=== PATIENT | female | born 1995 | race Caucasian/White ===

== ENCOUNTER 2019-02-25 23:09 | Emergency (ER) | payer OTHER ==
--- NOTE | 2019-02-26 01:50 | ED ---
- HPI Summary HPI Summary: The patient is a 23 y/o F presenting to [facility] with a chief complaint of sudden onset sharp right-sided pelvic pain starting at 1900 last night. The pain is rated 7/10 in severity. She is currently 19 weeks (). She is concerned because she did not have this pain during her first . She denies vaginal bleeding or discharge, contractions, nausea, vomiting, and diarrhea. Her OBGYN is Dr. Hay. - History of Current Complaint Chief Complaint: EDOBProblems Stated Complaint: "19 WKS PREG ABD PAIN" PER PT Time Seen by Provider: 02/26/19 01:43 Hx Obtained From: Patient Chief Complaint: Pain Onset/Duration: Started Hours Ago - at 1900, Still Present Timing: Lasting Hours Severity: Moderate Current Severity: Moderate Pain Intensity: 7 Location of Pain: Right Side - pelvic Character: Sharp Aggravating Factors: Nothing Alleviating Factors: Nothing Associated Signs and Symptoms: Positive: Other: - NEGATIVE: nausea, diarrhea, contractions. Negative: Nausea, Vaginal Bleeding or Discharge - Allergies/Home Medications Allergies/Adverse Reactions: Allergies Allergy/AdvReac Type Severity Reaction Status Date / Time cefaclor [From [facility]] Allergy Unknown Verified 02/25/19 23:20 Reaction Details Home Medications: Home Medications Cholecalciferol TAB* [Vitamin D TAB*] 1 tab PO DAILY 02/25/19 [History Confirmed 02/25/19] Vitamin TAB* 1 tab PO DAILY 02/25/19 [History Confirmed 02/25/19] PMH/Surg Hx/FS Hx/Imm Hx Endocrine/Hematology History: Denies: Hx Diabetes Opthamlomology History: Denies: Hx Legally Blind EENT History: Denies: Hx Deafness - Surgical History Surgery Procedure, Year, and Place: none Infectious Disease History: No Infectious Disease History: Denies: Traveled Outside the [place] in Last 30 Days - Family History Known Family History: Negative: Cardiac Disease - Social History Alcohol Use: None Hx Substance Use: No Substance Use Type: Reports: None Hx Tobacco Use: No Smoking Status (MU): Never Smoked Tobacco Review of Systems Positive: Abdominal Pain - sharp right-sided pelvic pain. Negative: Vomiting, Diarrhea, Nausea Positive: other - NEGATIVE: vaginal bleeding, contractions, vaginal discharge All Other Systems Reviewed And Are Negative: Yes Physical Exam - Summary Physical Exam Summary: Appearance: Well-appearing, Well-nourished, lying in bed comfortable Skin: Warm, dry, no obvious rash Eyes: sclera anicteric, no conjunctival pallor ENT: mucous membranes moist Neck: deferred Respiratory: No signs of respiratory distress Cardiovascular: Appears well perfused, pulses are nml Abdomen: Gravid with uterine fundus at level of umbilicus, Bed side US reveals good movement and good heart beat with rate of 130 BPM Musculoskeletal: Moving all 4 extremities without obvious discomfort Neurological: Awake and alert, mentation is normal, speech is fluent and appropriate Psychiatric: affect is normal, does not appear anxious or depressed - Physical Exam Triage Information Reviewed: Yes Vital Signs Reviewed: Yes Diagnostics - Vital Signs Vital Signs Temp Pulse Resp BP Pulse Ox 02/25/19 23:13 97.9 F 75 18 142/64 95 - Laboratory Lab Statement: Any lab studies that have been ordered have been reviewed, and results considered in the medical decision making process. Course/Dx - Course Course Of Treatment: The patient is a 23 y/o with a chief complaint of sudden onset sharp right-sided pelvic pain starting at 1900 last night. She is currently 19 weeks (). She is concerned because she did not have this pain during her first . She denies vaginal bleeding or discharge, contractions, nausea, vomiting, and diarrhea. Upon physical exam, the patient appears to be gravid with uterine fundus at level of umbilicus; bed side US reveals good movement and good heart beat with rate of 130 BPM. She is diagnosed with abdominal muscle strain. She will be discharged home with follow up with her OBGYN Dr. Hay in three days. She agrees with this plan and understands the need for return to the ED for any new or worsening symptoms. - Diagnoses Provider Diagnoses: Abdominal muscle strain, Discomfort during Discharge - Sign-Out/Discharge Documenting (check all that apply): Patient Departure - Patient will be discharged home. Patient Received Moderate/Deep Sedation with Procedure: No - Discharge Plan Condition: Good Disposition: HOME Patient Education Materials: (ED) Referrals: Sinan Hay MD [Medical Doctor] - 3 Days Additional Instructions: Follow up with Dr. Hay on Thursday, February 28, 2019. If you develop vaginal bleeding or contractions contact the service sooner for advice, or come back to the ED if it's severe. RETURN TO THE EMERGENCY DEPARTMENT FOR ANY NEW OR WORSENING SYMPTOMS. - Billing Disposition and Condition Condition: GOOD Disposition: Home - Attestation Statements Document Initiated by Aleida: Yes Documenting Iwonaibe: Shelby Smith Provider For Whom Aleida is Documenting (Include Credential): Dr. Duglas Pascal MD Scribe Attestation: Shelby Johnson scribed for Dr. Duglas Pascal MD on 02/26/19 at 0652. Scribe Documentation Reviewed: Yes Provider Attestation: The documentation as recorded by the Shelby rodas accurately reflects the service I personally performed and the decisions made by me, Dr. Duglas Pascal MD Status of Scribe Document: Viewed
[2019-02-26 02:22] VITALS: BP 119/66
== END 2019-02-26 01:45 | disposition home or self-care (01) ==
LOC: ED 23:09
DX: R10.2 Pelvic and perineal pain (principal); Z34.92 Encounter for supervision of normal pregnancy, unspecified, second trimester; R10.9 Unspecified abdominal pain; S39.011A Strain of muscle, fascia and tendon of abdomen, initial encounter; X58.XXXA Exposure to other specified factors, initial encounter; Y92.9 Unspecified place or not applicable
CPT/HCPCS: 99282

== ENCOUNTER 2019-07-20 20:45 | Inpatient (IN) | payer OTHER ==
--- NOTE | 2019-07-20 21:30 | PROCNOTE ---
[facility] OB: Delivery Note - Delivery A Date of : 07/20/19 Time of : 21:06 [place] Sex: Male Weight at : 3.61 kg Score 1 Minute: 9 Score 5 Minutes: 9 Gestational Age in Weeks and Days at Delivery: 40 Weeks and 2 Days Delivery Method: Spontaneous Vaginal Labor: Spontaneous Did Patient attempt ?: N/A, No Previous Amniotic Fluid: Clear Estimated Blood Loss: 200 Anesthesia/Analgesia: None Delivered By: Ines Terry - Nursery Level of Nursery: Regular/Bedside - Perineum Perineal Injury: 1st Degree Perineal Repair: Lucy Mensah CM - Events Delivery Events of Note: Precipitous Delivery, Antibiotics Indicated - Not Given - Additional Delivery Notes Additional Delivery Notes: Pt arrived on unit in active labor. Membranes ruptured spontaneously shortly after arrival and pt began to feel urge to push. Called to bedside from call room as pt's delivery table feeder was en route to the hospital and RN believed delivery was imminent. On entry into the room FHR decelerated into the 60's and pt began spontaneous pushing efforts. Pt brought infant rapidly to and coached through delivery of the head on the following contraction. Shoulders soon followed, with compound hand present as well. Infant placed on maternal abdomen with vigorous cry, good tone, HR>100. Pt's delivery table feeder then arrived in time for delivery of placenta and performed repair of first degree laceration.
[2019-07-20] MEDS ORDERED: Lactated Ringers 1000 ML Bag* 1,000 ML IV ONE (21:31)
[2019-07-20] MEDS ORDERED: Buffered Lidocaine 1% SYRIN* 1 ML/SYRINGE INTRADERM ONE (21:31)
[2019-07-20] MEDS ORDERED: Glycerin ADULT SUPP PR PRN (21:37)
[2019-07-20] MEDS ORDERED: Dibucaine 1% 28.35 GM TUBE PR PRN (21:37)
[2019-07-20] MEDS ORDERED: Witch Hazel PAD* JAR TOPICAL PRN (21:37)
--- NOTE | 2019-07-20 21:47 | HP ---
General Information - Reason for Visit active labor - General Information Maternal Age: 23 Grav: 2 Para: 2 SAB: 0 IEA: 0 Estimated Due Date: 07/18/19 Determined By: LMP Maternal Blood Type and Rh: A Positive - Results this Serology/RPR Result: Non-Reactive Rubella Result: Non-Immune - equivocal HBsAg Result: Negative HIV Result: Negative GBS Culture Result: Positive Past Medical History Delivery History: Hx Uncomplicated Vaginal Delivery Pertinent Past Medical History: Non-Contributory Pertinent Past Surgical History: None Pertinent Family History: See Records - MGM: Breast CA; PGM: HTN, high chol; PGF: HTN - Antepartal Records Antepartal Records: Reviewed, Complicated by: - GBS+, cigarette smoker , BMI 36 Review of Systems Constitutional: Uncomfortable CV Complaint: No Respiratory: Shortness of Breath: No Gastrointestinal: No Nausea/Vomiting, Normal Bowel Movement Genitourinary: No Dysuria, No Bleeding, No Leaking Fluid Musculoskeletal: Contractions Neurological: No Headache, No Visual Changes Movement: Normal Exam Allergies/Adverse Reactions: Allergies cefaclor [From Ceclor] Allergy (Mild, Verified 07/20/19 21:14) Unknown Reaction Details T:97.1 - Measurements Height: 5 ft 6 in Weight: 255 lb Weight in lbs: 255.321964 Body Mass Index (BMI): 41.1 Pre- Weight: 227 lb Weight Gained This : 28 lbs and 0 ozs - Exam Breast: Breast Exam Deferred CVA: No CVA Tenderness Extremities: No Edema Heart: Normal Rhythm/Heart Sounds HEENT: No Significant Findings Lungs: Clear Bilaterally Rectal: Rectal Exam Deferred Reflexes: DTR 2+ Thyroid: No Thyromegaly - Abdominal Exam Abdomen Exam: Fundal Height Consistent with Dates - Ultrasound/Biophysical Profile Ultrasound Status: Not Done Targeted Exam Findings Estimated Weight: 7 lbs 15oz Cervical Exam: Anterior Lip Effacement: Complete Station: +1 Presenting Part: Vertex Membrane Status: SROM Amniotic Fluid Evaluation: Gross Rupture Bleeding/Discharge: Bloody Show EFM Findings - External Monitor Findings Baseline Heart Rate: 140 - pt non compliant wiht monitoring Contractions: Regular, Moderate, 45-90 Seconds Assessment/Plan - Assessment 23 y.o. 39 w 3d EGA, active labor - Obstetrical Risk Factors Obstetrical Risk Factors: GBS Positive - Plan Plan: Admit - Anticipate Vaginal Delivery - Date/Time of Admission Date of Admission: 07/20/19 Time of Admission: 20:45
[2019-07-20] MEDS ORDERED: Lactated Ringers 1000 ML Bag* 1,000 ML IV SCH ×2 (22:00)
[2019-07-20] MEDS: Ibuprofen TAB* 600 MG PO PRN (23:33)
[2019-07-21] MEDS ORDERED: OXYTOCIN* 10 UNITS/ML 1 ML VIAL ONE (00:14)
[2019-07-21] MEDS ORDERED: Lidocaine 1% INJ* 10 MG/ML 30 ML SDV ONE (00:15)
[2019-07-21] MEDS: Acetaminophen TAB* 325 MG PO PRN ×3 (04:26→20:17)
[2019-07-21 05:11] LABS: Urine Benzodiazepine Screen None Detected (None Detect); Urine Opiates Screen None Detected (None Detect)
[2019-07-21 06:20] LABS: Hematocrit 36 % (35-47); Hemoglobin 12.1 g/dL (12.0-16.0); Mean Corpuscular HGB Conc 34 g/dL (31-36); Mean Corpuscular Hemoglobin 31 pg (27-31); Mean Corpuscular Volume 91 fL (80-97); Mean Platelet Volume 9.5 fL (7.4-10.4); Platelet Count 245 10^3/uL (150-450); Red Cell Distribution Width 13 % (10-15); White Blood Count 22.4 10^3/uL (3.5-10.8)
[2019-07-21 06:54] LABS: ABS Basophils 0.2 10^3/ul (0-0.2); ABS Eosinophils 0.1 10^3/ul (0-0.6); ABS Lymphocytes 3.4 10^3/ul (1.0-4.8); ABS Monocytes 1.6 10^3/ul (0-0.8); ABS Neutrophils 17.1 10^3/ul (1.5-7.7); Eosinophil % 0.3 %; Lymphocyte % 15.3 %
[2019-07-21] MEDS: Ibuprofen TAB* 600 MG PO PRN ×3 (08:00→22:05)
[2019-07-21] MEDS ORDERED: Simethicone TAB* 80 MG TAB.CHEW PO SCH (08:30)
[2019-07-21] MEDS ORDERED: Ferrous Gluconate TAB* 324 MG TAB PO SCH (09:00)
[2019-07-21] MEDS: Docusate CAP* 100 MG PO SCH ×3 (09:29→20:17)
[2019-07-22] MEDS: Acetaminophen TAB* 325 MG PO PRN (05:10)
[2019-07-22] MEDS: Ibuprofen TAB* 600 MG PO PRN ×2 (08:06→14:07)
[2019-07-22] MEDS: Docusate CAP* 100 MG PO SCH ×2 (08:06→14:07)
[2019-07-22] MEDS ORDERED: Tetan/Diph/Pertus SYR(Tdap)* 0.5 ML SYR(BOOSTRIX) use SYR IM ONE (13:47)
[2019-07-22] MEDS ORDERED: Measles, Mumps,Rubella VACC* 0.5 ML/VIAL SUBCUT ONE (15:00)
[2019-07-22 19:45] VITALS: BP 121/60
== END 2019-07-22 19:30 | disposition home or self-care (01) | DRG 560 ==
LOC: MCHOBOUT 20:45 → MCHOB 21:07
PROVIDERS: ADMIT Midwife; ATTEND Midwife
PROC: 10E0XZZ Delivery of Products of Conception, External Approach (ICD-10-PCS; principal; 2019-07-20)
PROC: 0HQ9XZZ Repair Perineum Skin, External Approach (ICD-10-PCS; 2019-07-20)
PROC: 4A1HXCZ Monitoring of Products of Conception, Cardiac Rate, External Approach (ICD-10-PCS; 2019-07-20)
DX: O99.824 Streptococcus B carrier state complicating childbirth (principal); Z37.0 Single live birth; O99.334 Smoking (tobacco) complicating childbirth; F17.210 Nicotine dependence, cigarettes, uncomplicated; O70.0 First degree perineal laceration during delivery; O62.3 Precipitate labor; O76 Abnormality in fetal heart rate and rhythm complicating labor and delivery; Z3A.39 39 weeks gestation of pregnancy; Z91.19 Patient's noncompliance with other medical treatment and regimen; Z88.1 Allergy status to other antibiotic agents
CPT/HCPCS: 36415; 80307; 85025; 90707; 90715; A9270-GY; J2590